=== PATIENT | female | born 1965 | race Caucasian/White ===

== ENCOUNTER → 2020-04-27 | Outpatient (CLI) | payer MEDICARE, OTHER ==
[~2020-04-27] MED LIST: ACYCLOVIR 400400 MG PO; ALPRAZOLAM 0.50.5 M1; AMANTADINE 100100 MG; AMANTADINE100 M1; ASPIR 8181 MG PO; B12INJ IM; BUTALB-ACETAMI1 EACH; CIPROFLOXACIN500 M1 PO; DICLOFENAC SODI25 MG PO; EFFEXOR XR75 MG PO; FOLIC ACID1 MG PO; GABAPENTIN 100100 MG PO; HYDROCODON-ACE1 EAC2; HYDROCODONE-APA1 TA1 PO; HYDROXYZINE HCL25 M1; IBUPROFEN 800800 MG PO; LIDODERM 5%1 PATC1 TRANSDERM; MIRALAX17 GM PO; NORTRIPTYLINE H10 M1; ONDANSETRON HCL4 M2 PO; PILOCARPINE HCL5 M1 PO; PROMETHAZINE HC25 M1; PROTONIX 20 MG20 M1 PO; PYRIDIUM200 MG PO; ROBAXIN 750 MG750 MG; TOPAMAX 25 MG T25 M1 PO; TOPAMAX 25 MG T25 MG; TOPAMAX50 MG; TOPIRAGEN50 MG; TORADOL 10 MG T10 MG; VICODIN; VYVANSE50 MG PO; ZOFRAN ODT4 MG PO; ZOFRAN8 MG; ZOMIG NS
== END ==
LOC: M.MRI 08:30
PROVIDERS: ATTEND Orthopaedic Surgery
DX: S83.242A Other tear of medial meniscus, current injury, left knee, initial encounter (principal); M25.862 Other specified joint disorders, left knee; X58.XXXA Exposure to other specified factors, initial encounter; Y93.89 Activity, other specified; Y92.89 Other specified places as the place of occurrence of the external cause; Y99.8 Other external cause status

== ENCOUNTER 2020-06-04 15:56 | Emergency (ER) | payer MEDICARE, OTHER ==
[~2020-06-04] VITALS: Ht 167.6 cm; Wt 84.4 kg
[2020-06-04] MEDS ORDERED: ACYCLOVIR 400400 MG PO (16:09)
[2020-06-04] MEDS ORDERED: BUSPAR30 MG PO (16:09)
[2020-06-04] MEDS ORDERED: FOLIC ACID1 MG PO (16:10)
[2020-06-04] MEDS ORDERED: NEURONTIN100 MG PO (16:10)
[2020-06-04] MEDS ORDERED: VITAMIN B-121000 MC2 SUBLING (16:10)
[2020-06-04] MEDS ORDERED: HYDROXYZINE HCL25 M2 (16:11)
[2020-06-04] MEDS ORDERED: LEVO-T25 MCG PO (16:11)
[2020-06-04] MEDS ORDERED: OMEPRAZOLE 20 M20 M1 PO (16:12)
[2020-06-04] MEDS ORDERED: VYVANSE60 MG PO (16:12)
[2020-06-04] MEDS ORDERED: ZOFRAN4 MG PO (16:12)
[2020-06-04] MEDS ORDERED: LIDOCAINE (16:12)
[2020-06-04] MEDS ORDERED: KLOR-CON 1010 MEQ PO (16:13)
[2020-06-04] MEDS ORDERED: PROTONIX40 M4 PO (16:13)
[2020-06-04] MEDS ORDERED: SALAGEN5 MG PO (16:13)
[2020-06-04] MEDS ORDERED: MAXALT10 MG PO (16:13)
[2020-06-04] MEDS ORDERED: IMITREX 6M6 MG/0.5 M (16:14)
[2020-06-04] MEDS ORDERED: TOPAMAX100 MG PO (16:14)
[2020-06-04] MEDS ORDERED: EFFEXOR XR150 MG PO (16:14)
[2020-06-04] MEDS ORDERED: KEFLEX500 M1 PO (17:39)
[2020-06-04] MEDS ORDERED: HYDROCODON-ACE1 EAC7 PO (17:39)
[2020-06-04 18:12] VITALS: BP 110/70
== END 2020-06-04 18:12 | disposition home or self-care (01) ==
LOC: M.ERS 15:56
DX: L03.114 Cellulitis of left upper limb (principal); G43.909 Migraine, unspecified, not intractable, without status migrainosus; Z91.040 Latex allergy status; Z88.8 Allergy status to other drugs, medicaments and biological substances; Z90.710 Acquired absence of both cervix and uterus; Z98.890 Other specified postprocedural states

== ENCOUNTER 2020-06-23 12:40 | Emergency (ER) | payer MEDICARE, OTHER ==
[~2020-06-23] VITALS: Ht 167.6 cm; Wt 81.7 kg
[~2020-06-23 12:40] MED LIST changes: +BUSPAR30 MG PO; +EFFEXOR XR150 MG PO; +HYDROCODON-ACE1 EAC7 PO; +HYDROXYZINE HCL25 M2; +IMITREX 6M6 MG/0.5 M; +KEFLEX500 M1 PO; +KLOR-CON 1010 MEQ PO; +LEVO-T25 MCG PO; +LIDOCAINE; +MAXALT10 MG PO; +NEURONTIN100 MG PO; +OMEPRAZOLE 20 M20 M1 PO; +PROTONIX40 M4 PO; +SALAGEN5 MG PO; +TOPAMAX100 MG PO; +VITAMIN B-121000 MC2 SUBLING; +VYVANSE60 MG PO; +ZOFRAN4 MG PO
[2020-06-23 13:39] VITALS: BP 112/73
== END 2020-06-23 13:40 | disposition home or self-care (01) ==
LOC: M.ERS 12:40
DX: L81.8 Other specified disorders of pigmentation (principal); G43.909 Migraine, unspecified, not intractable, without status migrainosus; Z90.710 Acquired absence of both cervix and uterus; Z98.890 Other specified postprocedural states; Z91.040 Latex allergy status; Z88.8 Allergy status to other drugs, medicaments and biological substances

== ENCOUNTER 2021-02-16 20:41 | Emergency (ER) | payer MEDICARE, OTHER ==
[~2021-02-16] VITALS: Ht 167.6 cm; Wt 78.9 kg
[2021-02-16] MEDS ORDERED: TIZANIDINE HCL4 M1 PO (21:00)
[2021-02-16 21:36] LABS: ABSOLUTE BASOPHILS 0.1 thou/uL (0.0-0.2); ABSOLUTE EOSINOPHILS 0.2 thou/uL (0.0-0.7); ABSOLUTE LYMPHOCYTES 4.5 thou/uL (0.8-5.3); ABSOLUTE MONOCYTES 0.6 thou/uL (0.0-1.2); ABSOLUTE NEUTROPHILS 4.8 thou/uL (1.6-8.1); BASOPHILS 0.6 %; EOSINOPHILS 1.7 %; HEMOGLOBIN 12.9 gm/dL (12.0-15.0); LYMPHOCYTES 44.2 %; MCH 31.1 pg (26.0-34.0); MCHC 33.1 g/dL (28.0-37.0); MCV 94.1 fL (80.0-100.0); MONOCYTES 6.4 %; MPV 7.7 fl. (7.2-11.1); NUCLEATED RBCS 0 /100WBC; PLATELET COUNT* 235 thou/uL (150-400); POLYS 47.1 %; RBC 4.14 mil/uL (4.20-5.00); RDW-CV 13.8 % (10.5-14.5); WBC 10.2 thou/uL (4.0-11.0)
[2021-02-16 21:40] LABS: CALCIUM 8.4 mg/dL (8.5-10.1); CREATININE 1.1 mg/dL (0.6-1.3)
[2021-02-16 21:41] LABS: INR 0.9
[2021-02-16 21:44] LABS: ALBUMIN 3.3 g/dL (3.4-5.0); MAGNESIUM 2.1 mg/dL (1.8-2.4); TOTAL BILIRUBIN 0.2 mg/dL (<0.1-1.0); TOTAL PROTEIN 6.7 g/dL (6.4-8.2)
[2021-02-16 23:04] LABS: URINE BILIRUBIN NEGATIVE (Negative); URINE BLOOD TRACE (Negative); URINE CLARITY CLEAR; URINE COLOR YELLOW; URINE GLUCOSE-RANDOM NEGATIVE (Negative); URINE KETONES NEGATIVE (Negative); URINE LEUKOCYTES-REFLEX NEGATIVE (Negative); URINE NITRITE-REFLEX NEGATIVE (Negative); URINE PROTEIN NEGATIVE (Negative); URINE UROBILINOGEN 0.2 E.U./dl (0.2-1.0)
[2021-02-16 23:41] VITALS: BP 111/70
--- NOTE | 2021-02-17 12:44 | EKG ---
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1965 Requested By: Silvia Miramontes Order Number: [id number] MD: Bernardino White Measurements Intervals [place] Rate: 79 P: 36 NV: 122 QRS: 59 QRSD: 93 T: 57 QT: 380 QTc: 436 Interpretive Statements Sinus rhythm Abnormal R-wave progression, early transition No previous ECG available for comparison Electronically Signed On 02-17-2021 12:44:43 CDT by Bernardino White [email or web address] <ELECTRONICALLY SIGNED> By: Bernardino White MD, [facility] 02/17/21 1244 02 02 Bernardino White MD, [facility] /EPI
== END 2021-02-16 23:52 | disposition home or self-care (01) ==
LOC: M.ERS 20:41
PROVIDERS: Emergency Medicine
DX: R20.2 Paresthesia of skin (principal); G43.909 Migraine, unspecified, not intractable, without status migrainosus; Z91.040 Latex allergy status; Z88.8 Allergy status to other drugs, medicaments and biological substances; Z91.011 Allergy to milk products; Z79.899 Other long term (current) drug therapy; Z79.82 Long term (current) use of aspirin; Z90.710 Acquired absence of both cervix and uterus

== ENCOUNTER 2021-10-21 12:28 | Emergency (ER) | payer MEDICARE, OTHER ==
[~2021-10-21] VITALS: Ht 172.7 cm; Wt 81.7 kg
[~2021-10-21 12:28] MED LIST changes: +TIZANIDINE HCL4 M1 PO
[2021-10-21 15:00] VITALS: BP 100/53
--- NOTE | 2021-10-21 15:53 | EKG ---
[place] [address] ELECTROCARDIOGRAM REPORT Name: VIOLAИВАН CHRIS Room: [facility]#: [id number] Admission: 10/21/21 Attend Phys: Discharge: 10/21/21 Date of : 67 Date of Service: 10/21/21 1407 Report #: [id number] THIS REPORT FOR: //name// 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[facility] : 1965 Requested By: Stuart Jose Order Number: [id number] MD: Masood Hoang Measurements Intervals [place] Rate: 83 P: 73 [place]: 117 QRS: 54 QRSD: 92 T: 72 QT: 386 QTc: 454 Interpretive Statements Sinus rhythm Borderline short OH interval Left atrial enlargement RSR' in V1 or V2, right VCD Compared to ECG 02/16/2021 21:03:31 Atrial abnormality now present RSR' in V1 or V2 now present Electronically Signed On 10-21-2021 15:52:29 INHALATION THERAPY AIDE by Masood Hoang [email or web address] <ELECTRONICALLY SIGNED> By: Masood Hoang MD, FACC 10/21/21 1552 1407 140 Masood Hoang MD, FACC /EPI
== END 2021-10-21 15:00 | disposition home or self-care (01) ==
LOC: M.ERS 12:28
DX: G43.909 Migraine, unspecified, not intractable, without status migrainosus (principal); Z90.710 Acquired absence of both cervix and uterus; Z79.899 Other long term (current) drug therapy; Z91.048 Other nonmedicinal substance allergy status; Z91.040 Latex allergy status; Z91.02 Food additives allergy status; Z91.011 Allergy to milk products; Z88.8 Allergy status to other drugs, medicaments and biological substances